=== PATIENT | male | born 1995 | race Hispanic/Latino ===

== ENCOUNTER 2024-04-11 02:06 | Emergency (ER) | payer SELFPAY ==
[~2024-04-11] VITALS: Ht 175.3 cm; Wt 77.1 kg
[~2024-04-11 02:06] MED LIST: PREVACID 24HR15 MG PO; PREVACID30 M1
[2024-04-11 02:08] VITALS: PULSE 108; RESP 20; TEMP 98.2; O2SAT 98
== END 2024-04-11 02:36 | disposition home or self-care (01) ==
LOC: ER 02:18
DX: S01.111A Laceration without foreign body of right eyelid and periocular area, initial encounter (principal); Y04.0XXA Assault by unarmed brawl or fight, initial encounter; Y92.89 Other specified places as the place of occurrence of the external cause; K21.9 Gastro-esophageal reflux disease without esophagitis
CPT/HCPCS: 99283

== ENCOUNTER 2024-04-15 16:48 | Emergency (ER) | payer SELFPAY ==
[~2024-04-15] VITALS: Ht 175.3 cm; Wt 77.1 kg
[2024-04-15 17:55] VITALS: PULSE 88; RESP 15; TEMP 98.1; O2SAT 100
== END 2024-04-15 18:30 | disposition home or self-care (01) ==
LOC: ER 18:30
DX: Z48.01 Encounter for change or removal of surgical wound dressing (principal)
CPT/HCPCS: 99282

== ENCOUNTER 2024-05-29 16:16 | Emergency (ER) | payer SELFPAY ==
[~2024-05-29] VITALS: Ht 175.3 cm; Wt 77.1 kg
[2024-05-29 16:30] VITALS: PULSE 77; RESP 18; TEMP 97.1
[2024-05-29] MEDS ORDERED: KETOROLAC TROMETHAMINE 60 MG/2 ML VIAL IM ONE (17:00)
[2024-05-29 18:20] VITALS: BP 127/84; PULSE 74; RESP 18; TEMP 98.3; O2SAT 98
== END 2024-05-29 18:22 | disposition home or self-care (01) ==
LOC: ER 16:53
DX: M54.6 Pain in thoracic spine (principal); K21.9 Gastro-esophageal reflux disease without esophagitis
CPT/HCPCS: 72070; 99283; J1885